=== PATIENT | female | born 1990 | race Caucasian/White ===

== ENCOUNTER 2019-04-29 12:53 | Emergency (ER) | payer BC ==
[~2019-04-29] VITALS: Ht 165.1 cm; Wt 72.6 kg
[2019-04-29] MEDS ORDERED: BENZTROPINE MESYLATE 2 MG/2 ML VIAL. IV STA (13:03)
[2019-04-29] MEDS ORDERED: IV NORMAL SALINE 1000ML BAG 1,000 ML IV ONE (13:15)
--- NOTE | 2019-04-29 14:43 | PHYS DOC ---
Past Medical History Past Medical History: Seizure Past Surgical History: Appendectomy, Tubal ligation Additional Past Surgical Histo: UMBILICAL HERNIA Alcohol Use: Rarely Drug Use: None Adult General Chief Complaint Chief Complaint: TREMORS HPI HPI Patient is a 28 year old female who was brought here by EMS from her work- related due to SHAKING, TWISTING, MUSCLE CONVULSION. PATIENT WAS GIVEN A TOTAL OF 10 MG OF VERSED BY EMS ON ROUTE HERE BUT SHE CONTINUE TO SHAKE WHILE SHE WAS AWAKE, TALKING. UPON ARRIVAL TO ROOM, PATIENT SAID SHE "FUCKING HATE IT THAT PEOPLE ARE STARING AT HER" aLL OTHER ros IS NEGATIVE UNLESS OTHERWISE NOTED IN hpi Review of Systems Review of Systems See above Current Medications Current Medications Current Medications Medications (Trade) Dose Ordered Sig/Dawit Start Time Stop Time Status Last Admin Dose Admin Benztropine Mesylate (Cogentin) 2 mg 1X STAT 04/29/19 13:03 04/29/19 13:34 DC 04/29/19 14:18 2 MG Sodium Chloride 1,000 ml @ 1,000 mls/hr 1X ONCE 04/29/19 13:15 04/29/19 14:14 DC 04/29/19 13:34 1,000 MLS/HR Allergies Allergies Allergies Coded Allergies Type Severity Reaction Last Updated Verified sertraline Allergy Intermediate 04/29/19 Yes Physical Exam Physical Exam See above Constitutional: Well developed, well nourished, in moderate acute distress, non- toxic appearance. [] HENT: Normocephalic, atraumatic, bilateral external ears normal, oropharynx moist, no oral exudates, nose normal. [] Eyes: PERRLA, EOMI, conjunctiva normal, no discharge. [] Neck: Normal range of motion, no tenderness, supple, no stridor. [] Cardiovascular:Heart rate regular rhythm, no murmur [] Lungs & Thorax: Bilateral breath sounds clear to auscultation [] Abdomen: Bowel sounds normal, soft, no tenderness, no masses, no pulsatile masses. [] Skin: Warm, dry, no erythema, no rash. [] Back: No tenderness, no CVA tenderness. [] Extremities: No tenderness, no cyanosis, no clubbing, ROM intact, no edema. [] Neurologic: Alert and oriented X 3, normal motor function, normal sensory function, no focal deficits noted. Psychologic: APPEARED VERY ANXIOUS, HYPERVENTILATING, SHAKING, TWISTING...WHILE SHE WAS AWAKE, ALERT, TRACKING WITH HER EYE. Current Patient Data Vital Signs Vital Signs Date Time Temp Pulse Resp B/P (MAP) Pulse Ox O2 Delivery O2 Flow Rate FiO2 04/29/19 14:45 88 16 119/64 (82) Room Air 04/29/19 12:53 99.2 99.2 EKG EKG [] Radiology/Procedures Radiology/Procedures [] Course & Med Decision Making Course & Med Decision Making Pertinent Labs and Imaging studies reviewed. (See chart for details) Patient did not want any diagnostic work up done, refused CT scan of head, refused blood work. She was given 2 mg cogentin iv, felt much better, wanted to be released [facility]. PATIENT SIGNED OUT AMA. Patient was awake alert oriented, competent to make medical decision, denies suicidal ideation Dragon Disclaimer Dragon Disclaimer This electronic medical record was generated, in whole or in part, using a voice recognition dictation system. Departure Departure Impression: Primary Impression: Dystonia Disposition: 07 AGAINST MEDICAL ADVICE Condition: IMPROVED Referrals: UNKNOWN PCP NAME (PCP) NAHUM MOHR DO Apr 29, 2019 14:43
[2019-04-29 14:45] VITALS: BP 119/64
== END 2019-04-29 14:55 | disposition left against medical advice (07) ==
LOC: ER 12:53
DX: G24.9 Dystonia, unspecified (principal); Z90.49 Acquired absence of other specified parts of digestive tract; Z98.51 Tubal ligation status; Z88.8 Allergy status to other drugs, medicaments and biological substances
CPT/HCPCS: 96374; 99284; J0515; J7030

== ENCOUNTER 2019-08-20 11:18 | Emergency (ER) | payer BC ==
[~2019-08-20] VITALS: Ht 154.9 cm; Wt 68.1 kg
[2019-08-20 11:20] VITALS: BP 133/78
--- NOTE | 2019-08-20 11:43 | PHYS DOC ---
Past Medical History Past Medical History: Seizure Past Surgical History: Appendectomy, Tubal ligation Additional Past Surgical Histo: UMBILICAL HERNIA Smoking Status: Current Every Day Smoker Alcohol Use: Rarely Drug Use: None Adult General Chief Complaint Chief Complaint: Shaking HPI HPI Patient is a 28 year old female with history of dystonia and seizure who presents EMS with complaining of shaking. Patient states she was at work and suddenly started shaking about 30 minutes prior to arrival. EMS reported that she had episode of unresponsive after shaking that responded with sternal rubs. Patient had intermittent episodes of shaking and moving her hands towards her face without loss of consciousness. Patient had episode patient looks very anxious and states she had the same problem previously. Review of Systems Review of Systems Constitutional: Denies fever or chills [] Eyes: Denies change in visual acuity, redness, or eye pain [] HENT: Denies nasal congestion or sore throat [] Respiratory: Denies cough or shortness of breath [] Cardiovascular: No additional information not addressed in HPI [] GI: Denies abdominal pain, nausea, vomiting, bloody stools or diarrhea [] : Denies dysuria or hematuria [] Musculoskeletal: Denies back pain or joint pain [] Integument: Denies rash or skin lesions [] Neurologic: Denies headache, focal weakness or sensory changes, reports shaking [] Endocrine: Denies polyuria or polydipsia [] All other systems were reviewed and found to be within normal limits, except as documented in this note. Current Medications Current Medications Current Medications Medications (Trade) Dose Ordered Sig/Dawit Start Time Stop Time Status Last Admin Dose Admin Benztropine Mesylate (Cogentin) 2 mg 1X PRN 08/20/19 11:45 08/20/19 13:33 DC 08/20/19 12:20 2 MG Diphenhydramine HCl (Benadryl) 25 mg 1X ONCE 08/20/19 13:00 08/20/19 13:01 DC 08/20/19 13:00 25 MG Allergies Allergies Allergies Coded Allergies Type Severity Reaction Last Updated Verified sertraline Allergy Intermediate 04/29/19 Yes Physical Exam Physical Exam Constitutional: Well nourished, mild distress, non-toxic appearance, jerking movement of hands. [] HENT: Normocephalic, atraumatic. Eyes: PERRLA, EOMI, conjunctiva normal, no discharge. [] Neck: Normal range of motion, no tenderness, supple, no stridor. [] Cardiovascular:Heart rate regular rhythm, no murmur [] Lungs & Thorax: Bilateral breath sounds clear to auscultation [] Abdomen: Bowel sounds normal, soft, no tenderness, no masses, no pulsatile masses. [] Skin: Warm, dry, no erythema, no rash. [] Back: No tenderness, no CVA tenderness. [] Extremities: No tenderness, no cyanosis, no clubbing, ROM intact, no edema. [] Neurologic: Alert and oriented X 3, no focal deficits noted. [] Psychologic: Affect anxious, judgement normal, mood normal. [] Current Patient Data Vital Signs Vital Signs Date Time Temp Pulse Resp B/P (MAP) Pulse Ox O2 Delivery O2 Flow Rate FiO2 08/20/19 11:20 99.1 108 22 133/78 (96) 99 Room Air 99.1 EKG EKG [] Radiology/Procedures Radiology/Procedures [] Course & Med Decision Making Course & Med Decision Making Evaluation of patient in ER showed 28-year-old female patient with history of dystonia brought in by EMS because of jerking movement of her upper extremities. Patient was very anxious in ER and treated with Cogentin 2 mg IM with improvement of her condition. Patient also had Benadryl IM with resolving extrapyramidal symptoms. Patient did not want to have any blood test or imaging evaluation. Patient was advised to continue home medication and follow-up with her primary care physician. I've spoken with the patient and/or caregivers. I've explained the patient's condition, diagnosis and treatment plan based on information available to me at this time. I've answered the patient's and/or caregivers questions and addressed any concerns. The patient and/or caregivers have a good understanding the patient's diagnosis, condition and treatment plan as can be expected at this point. Vital signs have been stabilized. The patient's condition is stable for discharge from the emergency department. The patient will pursue further outpatient evaluation with her primary care provider or other designated consulting physician as outlined in the discharge instructions. Patient and/or caregivers are agreeable to this plan of care and follow-up instructions have been explained in detail. The patient and/or caregivers have received these instructions in written format and expressed understanding of these discharge instructions. The patient and her caregivers are aware that if any significant change in condition or worsening of symptoms josué fischer prompt him to immediately return to this of the closest emergency department. If an emergent department is not readily available I would encourage him to call 911. Falguni Disclaimer Falguni Disclaimer This electronic medical record was generated, in whole or in part, using a voice recognition dictation system. Departure Departure Impression: Primary Impression: Extrapyramidal symptom Additional Impression: Dystonia Disposition: 01 HOME, SELF-CARE Condition: IMPROVED Referrals: UNKNOWN PCP NAME (PCP) Patient Instructions: Dystonic Reaction Additional Instructions: Drink plenty of liquids Follow-up with your primary care physician in 2-3 days Return to ER if not getting better May take [id number] Benadryl for symptom as needed Thank you for visiting [facility]. We appreciate you trusting us with your care. If any additional problems come up don't hesitate to return to visit us. Please follow up with your primary care provider so they can plan additional care if needed and know about the problem that you had. If symptoms worsen come back to the Emergency Department. Any concerning symptoms that start such as chest pain, shortness of air, weakness or numbness on one side of the body, running high fevers or any other concerning symptoms return to the ER. Problem Qualifiers BERENICE ARAYA MD Aug 20, 2019 11:43
[2019-08-20] MEDS ORDERED: BENZTROPINE MESYLATE 2 MG/2 ML VIAL. IM PRN (11:45)
[2019-08-20] MEDS ORDERED: diphenhydrAMINE HCL 25 MG CAPSULE PO ONE ×2 (13:00)
== END 2019-08-20 13:31 | disposition home or self-care (01) ==
LOC: ER 11:18
DX: G24.9 Dystonia, unspecified (principal); F17.200 Nicotine dependence, unspecified, uncomplicated; Z98.51 Tubal ligation status; Z90.89 Acquired absence of other organs; Z98.890 Other specified postprocedural states; Z88.2 Allergy status to sulfonamides
CPT/HCPCS: 96372; 99283; J0515; Q0163